=== PATIENT | male | born 1970 | race Caucasian/White ===

== ENCOUNTER 2023-10-02 07:30 | Day surgery (SDC) | payer BC ==
[2023-10-02] MEDS: Pantoprazole 40 MG Vial IVPUSH ONE (08:21)
[2023-10-02] MEDS: Sodium Chloride 0.9% 10 ML Syringe FLUSH PRN ×2 (08:27→08:37)
[2023-10-02] MEDS: Sucralfate Suspension 1 GM/10 ML Cup PO ONE (08:28)
[2023-10-02 08:31] LABS: BASOPHILS ABSOLUTE AUTO 0.1 K/mm3 (0.0-0.2); BASOPHILS PERCENT AUTO 0.2 % (0.0-1.0)
[2023-10-02] MEDS: Iopamidol 755 Mg/ML 100 ML Bottle IVPUSH ONE (08:37)
[2023-10-02 08:56] LABS: A/G RATIO 0.9 (1-2); ALANINE AMINOTRANSFERASE,ALT 23 U/L (16-63); ALBUMIN 2.9 g/dl (3.4-5.0); ALKALINE PHOSPHATASE 65 U/L (46-116); ANION GAP 13.5 (5-15); ASPARTATE AMNIOTRANSFERASE,AST 11 U/L (15-37); BILIRUBIN TOTAL 1.3 mg/dL (0.2-1.0); BLOOD UREA NITROGEN,BUN 17 mg/dL (7-18); BUN/CREATININE RATIO 13.1 (14-18); C-REACTIVE PROTEIN 11.33 mg/dL (<0.30); CALCIUM 8.4 mg/dL (8.5-10.1); CARBON DIOXIDE,CO2 24 mEq/L (21-32); CHLORIDE,CL 104 mEq/L (98-107); CREATININE 1.3 mg/dL (0.7-1.3); EST CRCL DRUG DOSING (CG) 73.79 mL/min; ESTIMATED GFR 67 mL/min (>60); GLUCOSE RANDOM 161 mg/dL (70-99); MAGNESIUM 1.7 mg/dL (1.8-2.4); POTASSIUM,K 3.5 mEq/L (3.5-5.1); PROTEIN TOTAL,TP 6.2 g/dl (6.4-8.2); SODIUM,NA 138 mEq/L (136-145)
[2023-10-02 09:01] LABS: TROPONIN I HIGH SENSITIVITY < 4 pg/mL (<=76)
[2023-10-02 09:25] LABS: CORONAVIRUS COVID-19 NAA NEGATIVE (NEGATIVE); INFLUENZA A NAA NEGATIVE (NEGATIVE); RESPIRATORY SYNCYTIAL VIR NAA NEGATIVE (NEGATIVE)
[2023-10-02 09:30] LABS: HEMATOCRIT 48.8 % (42.0-52.0); HEMOGLOBIN 16.9 gm/dl (14.0-18.0); LYMPHOCYTES PERCENT AUTO 4.9 % (24.0-44.0); MEAN CORPUSCULAR HGB CONC 34.6 g/dl (32.0-36.0); MEAN CORPUSCULAR VOLUME 83.7 fl (83.0-99.0); MONOCYTES PERCENT AUTO 8.5 % (0.0-8.0); NEUTROPHILS PERCENT AUTO 85.1 % (41.0-71.0); PLATELET COUNT,PLT 352 K/mm3 (150-400); RED BLOOD CELL COUNT 5.83 M/mm3 (4.52-5.90); WHITE BLOOD CELL COUNT,WBC 25.14 K/mm3 (3.9-11.3)
[2023-10-02 09:31] LABS: EOSINOPHILS ABSOLUTE AUTO 0.2 K/mm3 (0.0-0.4); EOSINOPHILS PERCENT AUTO 0.7 % (0.0-6.0); IMMATURE GRAN ABSOLUTE AUTO 0.15 K/mm3 (0.00-0.05); IMMATURE GRAN PERCENT AUTO 0.6 % (0.0-0.4); LYMPHOCYTES ABSOLUTE AUTO 1.2 K/mm3 (1.0-4.8); MONOCYTES ABSOLUTE AUTO 2.1 K/mm3 (0.0-0.8); NEUTROPHILS ABSOLUTE AUTO 21.4 K/mm3 (1.8-7.7)
[2023-10-02 09:37] LABS: SLIDE REVIEW ABNORMAL SMEAR
[2023-10-02] MEDS: Levofloxacin/Dextrose 5%-Water 750 MG in Premix Bag 1 BAG IV ONE (09:58)
[2023-10-02 10:01] LABS: APPEARANCE,URINE CLEAR (Clear); BILIRUBIN,URINE NEGATIVE (Negative); COLOR,URINE YELLOW (Yellow); GLUCOSE,URINE NEGATIVE (Negative); KETONES,URINE NEGATIVE (Negative); LEUKOCYTE ESTERASE,URINE NEGATIVE (Negative); NITRITE,URINE NEGATIVE (Negative); OCCULT BLOOD,URINE NEGATIVE (Negative); PH,URINE 5.5 (5.0-8.0); PROTEIN,URINE NEGATIVE (Negative); UROBILINOGEN,URINE 0.2 (0.2-1.0)
[2023-10-02] MEDS ORDERED: Lidocaine 1% 5 ML VIAL ONE (10:09)
[2023-10-02] MEDS ORDERED: fentaNYL 250 MCG/5 ML SDV ONE (10:09)
[2023-10-02] MEDS ORDERED: Propofol 200 MG/20 ML SDV ONE (10:09)
[2023-10-02] MEDS ORDERED: Ondansetron 4 MG/2 ML SDV ONE (10:09)
[2023-10-02] MEDS ORDERED: Lidocaine 1% 0 ML ONE (10:09)
[2023-10-02] MEDS ORDERED: Rocuronium 50 MG/5 ML Vial ONE ×3 (10:09)
[2023-10-02] MEDS ORDERED: Dexamethasone 4 MG/ML 5 ML MDV ONE (10:09)
[2023-10-02] MEDS ORDERED: Lactated Ringers 1,000 ML IV ONE ×2 (10:19)
[2023-10-02] MEDS ORDERED: Sugammadex Sodium 200 MG/2 ML VIAL IV ONE (10:49)
[2023-10-02] MEDS ORDERED: HYDROmorphone 0.5 MG/0.5 ML Syringe IVPUSH PRN (11:02)
[2023-10-02] MEDS ORDERED: Ondansetron 4 MG/2 ML SDV IVPUSH PRN (11:02)
[2023-10-02] MEDS ORDERED: fentaNYL 100 MCG/2 ML SDV IVPUSH PRN (11:02)
[2023-10-02] MEDS ORDERED: Iopamidol 612 MG/ML 30 ML SDV ONE (11:17)
[2023-10-02] MEDS: oxyCODONE 5 MG Tab PO PRN (14:15)
[2023-10-02] MEDS: Bupivacaine 0.5% 30 ML SDV ONE (15:35)
[2023-10-02] MEDS: EPINEPHrine 1 MG/ML SDV ONE (15:36)
== END 2023-10-02 14:55 | disposition home or self-care (01) ==
LOC: JD.ED 07:30 → JD.SDS 10:18
PROVIDERS: ATTEND Surgery
DX: K81.0 Acute cholecystitis (principal); F17.210 Nicotine dependence, cigarettes, uncomplicated; Z88.0 Allergy status to penicillin; Z79.899 Other long term (current) drug therapy; Z20.822 Contact with and (suspected) exposure to COVID-19
CPT/HCPCS: 0241U; 36415; 47562; 74177; 76705; 80053; 81003; 82248; 83735; 84484; 85025; 86140; 93005; 96365; 96366; 96375; 99285; A9270; J0171; J0665; J1100; J1956; J2405; J2470; J2704; J3010; J3490; J7120; Q9967; 00790; 93010; 99284